=== PATIENT | female | born 1955 | race Caucasian/White ===

== ENCOUNTER 2016-08-12 16:03 | Inpatient (IN) | payer MEDICARE, MEDICAID ==
[~2016-08-12] VITALS: Ht 160 cm; Wt 89.7 kg
[2016-08-12 18:00] VITALS: BP 187/98
[2016-08-12] MEDS ORDERED: BISACODYL 5 MG TAB PO PRN (18:15)
[2016-08-12] MEDS ORDERED: ONDANSETRON 4MG/2ML VIAL (J2405) IV PRN (18:15)
[2016-08-12] MEDS ORDERED: ACETAMINOPHEN TAB 650MG DOSE (2X325MG) PO PRN (18:15)
[2016-08-12 18:59] LABS: BASO % 0.1 % (0.0-1.0); EOS # 0.1 K/mm3 (0.0-0.50); EOS % 0.4 % (0.0-3.0); LARGE UNSTAINED CELL # 0.1 K/mm3 (0.0-0.4); LARGE UNSTAINED CELL % 0.5 % (0.0-4.0); LYMPH # 0.7 K/mm3 (1.5-4.5); LYMPH % 4.4 % (24.0-44.0); MEAN CORPUSCULAR HEMOGLOBIN 30.2 pg (27.0-33.0); MEAN CORPUSCULAR HGB CONC 33.3 g/dl (32.0-36.5); MEAN CORPUSCULAR VOLUME 90.7 fl (80.0-96.0); MONO # 0.7 K/mm3 (0.0-0.8); MONO % 4.4 % (0.0-5.0); NEUTROPHILS # 13.5 K/mm3 (1.8-7.7); NEUTROPHILS % 90.2 % (36.0-66.0); PLATELET COUNT, AUTOMATED 306 k/mm3 (150-450); RED CELL DISTRIBUTION WIDTH 15.8 % (11.5-14.5)
[2016-08-12] MEDS ORDERED: cloNIDine 0.1 MG TAB PO ONE (19:00)
[2016-08-12] MEDS ORDERED: amLODIPine 10 MG TAB PO ONE (19:00)
[2016-08-12 19:04] LABS: INR 0.96
--- NOTE | 2016-08-12 19:12 | REP ---
PORTABLE CHEST, ONE VIEW: HISTORY: Shortness of breath. COMPARISON: 08/12/2016 A large mass is present in the right hilum. Increased density is present in the right lower lobe consistent with atelectasis or infiltrate. A right pleural effusion is present that is increased compared to the previous study. The left lung is clear. IMPRESSION: 1. Right hilar mass, unchanged compared to the previous study. 2. Right lower lobe atelectasis or infiltrate. 3. Right pleural effusion, increased compared to the previous study. Signed by Suraj Cobb MD 08/12/2016 07:14 P
[2016-08-12 19:38] LABS: ALBUMIN 3.2 GM/DL (3.2-5.2); ALBUMIN/GLOBULIN RATIO 1.07 (1.00-1.93); ALKALINE PHOSPHATASE 108 U/L (45-117); ALT/SGPT 74 U/L (12-78); ANION GAP 10 MEQ/L (8-16); AST/SGOT 27 U/L (15-37); BILIRUBIN,TOTAL 0.5 MG/DL (0.2-1.0); BLOOD UREA NITROGEN 19 MG/DL (7-18); CALCIUM LEVEL 8.3 MG/DL (8.8-10.2); CARBON DIOXIDE LEVEL 35 MEQ/L (21-32); CHLORIDE LEVEL 94 MEQ/L (98-107); CREATININE FOR GFR 0.76 MG/DL (0.55-1.02); GLOMERULAR FILTRATION RATE > 60.0 (>45); GLUCOSE, FASTING 99 MG/DL (80-110); MAGNESIUM LEVEL 1.3 MG/DL (1.8-2.4); POTASSIUM SERUM 2.5 MEQ/L (3.5-5.1); SODIUM LEVEL 139 MEQ/L (136-145); TOTAL PROTEIN 6.2 GM/DL (6.4-8.2)
[2016-08-12] MEDS ORDERED: POTASSIUM CHLORIDE 10 MEQ SR TABLET PO ONE ×3 (19:45→20:45)
[2016-08-12] MEDS ORDERED: FUROSEMIDE 40 MG/4 ML VIAL (J1940) IV ONE (20:00)
[2016-08-12] MEDS ORDERED: IPRATROPIUM 0.5MG/ALBUTEROL 2.5MG INH SOL UD 3ML (DUONEB)(J7620) NEB PRN (20:00)
[2016-08-12] MEDS ORDERED: GLUCAGON FOR INJ 1 MG VIAL (J1610) SC PRN (20:15)
[2016-08-12] MEDS ORDERED: NICOTINE POLACRILEX 2 MG GUM PO PRN (20:15)
[2016-08-12] MEDS ORDERED: GLUCOSE 4 GM CHEW TABLET PO PRN (20:15)
[2016-08-12] MEDS ORDERED: DEXTROSE 50% 50 ML SYRINGE IV PRN (20:15)
[2016-08-12] MEDS: MAG SULF 1GM/100ML (MAG RUN) 1 GM in APPROPRIATE DILUENT 1 EA IV SCH ×3 (20:18→23:05)
[2016-08-12] MEDS: IPRATROPIUM 0.5MG/ALBUTEROL 2.5MG INH SOL UD 3ML (DUONEB)(J7620) NEB SCH (20:43)
[2016-08-12 20:53] LABS: CHOLESTEROL LEVEL 256 MG/DL (<200); TRIGLYCERIDES LEVEL 347 MG/DL (<150)
[2016-08-12] MEDS: HumaLOG INSULIN (NovoLOG) PER UNIT SC SCH (21:00)
[2016-08-12] MEDS: HEPARIN SOD (PORCINE) 5000 UNITS/ML VIAL SC SCH (21:41)
[2016-08-12] MEDS: NICOTINE 7 MG/24 HR TRANSDERMAL TD SCH (21:41)
[2016-08-12] MEDS: METOPROLOL TARTRATE 100 MG TAB PO SCH (21:42)
[2016-08-12] MEDS: ROSUVASTATIN 10 MG TAB (CRESTOR) PO SCH (21:42)
[2016-08-12] MEDS: **hydrALAZINE HCL** 25 MG TAB PO SCH (21:43)
[2016-08-12] MEDS ORDERED: CRES40TA PO (22:23)
[2016-08-12] MEDS ORDERED: GLIP5TAB8 PO (22:23)
[2016-08-12] MEDS ORDERED: NEXI40CA PO (22:23)
[2016-08-12] MEDS ORDERED: AMLO10TA2 PO (22:23)
[2016-08-12] MEDS ORDERED: HYDR-4267 PO (22:23)
[2016-08-12] MEDS ORDERED: METO200T15 PO (22:24)
[2016-08-12] MEDS ORDERED: HYDR-4266 PO (22:24)
[2016-08-12 22:25] VITALS: BP 129/69
[2016-08-12] MEDS ORDERED: METF1000 PO (22:27)
[2016-08-12] MEDS ORDERED: VALS1TAB48 PO (22:27)
[2016-08-12] MEDS ORDERED: METF500T PO (22:27)
[2016-08-12] MEDS ORDERED: ALBU17IN INH (22:27)
[2016-08-12] MEDS ORDERED: HYDR25TAB PO (22:28)
[2016-08-12] MEDS ORDERED: NYST10CR EXT (22:28)
--- NOTE | 2016-08-12 22:28 | ECGEPIP ---
Stationary ECG Study [facility] Test Date: 2016-08-12 Pat Name: SERGIO ANDINO Department: Room: [place] [address] Gender: F [employer]: SANDI : 1955 Requested By: JOAQUIM Grimes Order Number: [id number] Reading MD: Luis Enrique Bustamante Measurements Intervals [place] Rate: 81 P: 59 HI: 129 QRS: 18 QRSD: 81 T: 0 QT: 203 QTc: 236 Interpretive Statements SINUS RHYTHM WITH One VENTRICULAR PREMATURE COMPLEX poor R-wave progression Nonspecific ST-T abnormalities. No prior ECG available for comparison at the time of interpretation. Electronically Signed On 08-12-2016 22:28:29 EDT by Luis Enrique Bustamante
[2016-08-12] MEDS ORDERED: VITA50003 PO (22:30)
[2016-08-12] MEDS ORDERED: FLUT1SPR2 (22:30)
[2016-08-12] MEDS ORDERED: VITA200016 PO (22:30)
[2016-08-12] MEDS ORDERED: BREO1INH INH (22:30)
[2016-08-12 22:40] VITALS: O2SAT 87
--- NOTE | 2016-08-12 22:47 | HPE ---
DATE OF ADMISSION: 08/12/2016 PRIMARY CARE PHYSICIAN: None. INPATIENT HOSPITALIST ATTENDING: Dr. Lupillo Saldaña CHIEF COMPLAINT: Shortness of breath for 2 weeks. HISTORY OF PRESENTING ILLNESS: 61-year-old female with history of 50-pack year history of smoking, actively smokes a pack a day, hypertension, type 2 diabetes, obesity, hypercholesterolemia, bilateral cataract surgery, no diagnosis of chronic obstructive pulmonary disease (COPD), questionable congestive heart failure, presents to [facility] with 2 week history of increasing shortness of breath, initially with exertion, currently at rest. According to the granddaughter, who provides most of the history, patient has not been taking her hydrochlorothiazide for the past 2 days and has increasing lower extremity edema and shortness of breath. Usual weight is 219 pounds. She denies any chest pain, pressure or tightness, cough, fever or chills, nausea, vomiting, changes in appetite, changes in vision, and usually walks across the street and back to the home without much difficulty until 2 weeks ago when she had increasing shortness of breath. She was seen by the emergency room physician at [facility] and was found to be 89% on room air, 94% on 2 liters nasal cannula, blood pressure was slightly elevated at 187/90. EKG showed sinus rhythm with premature ventricular contractions (PVCs), ventricular rate of 84. Potassium was low at 2.5 and magnesium was 1.3. Patient was supplemented with potassium and IV magnesium. Chest xray to evaluate shortness of breath showed a right hilar mass and right lower lobe atelectasis, infiltrate, and increased right-sided pleural effusion. CT of the chest shows a perihilar right upper lobe mass measuring 11.6 x 9.7 x 9.4 cm, right upper lobe and hilar mass invading the mediastinum and abutting the ascending aorta with 3.2 cm node in the right hilum and 2.5 cm node in the subcarinal region, moderate right-sided pleural effusion layering posteriorly from the base of the apex and loculated effusion anterolaterally in the mid and upper lung zone. Left lung is clear. Left adrenal has a 4.3 x 3.1 x 2.5 cm mass. Liver portion visible is clear. No focal bone lesion. Patient was transferred to [facility] for further evaluation of the right upper lobe and hilar mass for biopsy and specialty referral. PAST MEDICAL HISTORY: 1. Diabetes. 2. Hypertension. 3. Hypercholesterolemia. 4. Obesity. 5. Bilateral cataract surgery. 6. section times four. ALLERGIES: To CLINDAMYCIN, CYCLOBENZAPRINE, ERYTHROMYCIN, MELOXICAM, and SERTRALINE. HOME MEDICATIONS: - glipizide 5 mg daily - metoprolol tartrate 200 daily - hydralazine 25 daily - Norvasc 10 daily - hydrochlorothiazide 25 daily - Crestor 20 nightly - valsartan 320 daily - Prilosec 40 daily - metformin 500 mg in the afternoon, 1000 mg twice a day SOCIAL HISTORY: Patient is a heavy smoker, a pack a day since the age of 10, still smoking. Patient's healthcare proxy is the granddaughter, Essie Salcedo , . Patient states that she is DO NOT RESUSCITATE/DO NOT INTUBATE. Family has healthcare proxy form. Previous history of alcohol abuse, quit 8 years ago. No recreational drug use. FAMILY HISTORY: Mother with ovarian cancer. Sister with pancreatic cancer. Another sister with breast cancer. Father due to gonorrhea. PHYSICAL EXAMINATION: Generally, patient is awake, alert, oriented to person and place and time. She is very hard of hearing, disheveled appearing, appears older than her stated age. Her pupils are equal, round, reactive to light and accommodation. She has edema around the neck and lower face. Pharynx is normal. Dry mucous membranes. No jugular venous distention. Neck is supple, no thyromegaly. HEART: S1, S2, sinus rhythm. No murmurs, rubs, or gallops. LUNGS: Diminished breath sounds on the right with coarse rhonchi, left is clear. No use of accessory muscles. Positive prolonged expiration. Faint wheezing. ABDOMEN: Obese, soft, nontender, nondistended. Positive bowel sounds times four quadrants. No rebound, guarding, or hepatosplenomegaly. EXTREMITIES: 3+ pitting edema to the bilateral ankles to the sacrum. EKG sinus rhythm, ventricular rate of 84, [place] interval of 140, QRS of 78, QTc of 456. Occasional PVCs. Poor R-wave progression. Normal QRS. Nonspecific ST-T wave changes. Lateral T-wave depressions. Chest xray shows perihilar right upper lobe mass-like opacity suspicious for neoplasm with right pleural effusion, mild to moderate sized, with some compressive atelectasis at the right base, underlying fibrosis, and COPD noted. Left lung was without effusion, mass, or definite infiltrate. No cardiomegaly or edema. CT chest at [facility] shows 11.6 x 9.7 x 9.4 cm right upper lobe and hilar mass invading the mediastinum and abutting the ascending aorta. 3.2 cm node in the right hilum. 2.5 cm node in subcarinal region. Moderate right pleural effusion layering posteriorly from base to apex. Loculated effusion anterolaterally in the mid and upper lung zone. Left lung is clear. Left adrenal 4.3 x 3.1 x 2.5 cm mass. Liver portion visible is clear. No focal bone lesions. LABORATORY DATA: White count 15, hemoglobin 13, hematocrit 41, platelet count 306, 90% neutrophils. Sodium 139, potassium 2.5, chloride 94, bicarbonate 35, BUN 19, creatinine 0.76, glucose 99, magnesium 1.3, calcium 8.3, total bilirubin 0.5, AST 27, ALT 74, alkaline phosphatase 108, total CK 52, MB fraction 4.3, MB relative index 8.26, troponin 0.03, C-reactive protein 0.72, BNP is pending, total protein 6.2, albumin 3.2, TSH 1.27. ASSESSMENT AND PLAN: This is a 61-year-old female with history of active smoking, 50-pack year history of smoking, no diagnosis of chronic obstructive pulmonary disease (COPD), diabetes, hypertension, hyperlipidemia, obesity, presents with 1 week history of increasing shortness of breath, lower extremity edema, and missed doses of hydrochlorothiazide, brought in by family to [facility] Emergency Room. In the emergency room, she was found to have a right upper lobe mass on chest xray, 3+ pitting edema in her lower extremities, and severe electrolyte abnormalities which were supplemented. CT chest showed an 11.6 x 9.7 x 9.4 cm right upper lobe and hilar mass. Patient was transferred from [facility] Emergency Room to [facility] for further management of patient's right upper lobe and hilar mass, most likely secondary to malignancy. Patient will be admitted as an inpatient for 2 midnights and will be assigned to Dr. Lupillo Saldaña for the following issues: 1. Right upper lobe and hilar mass measuring 11.6 x 9.7 x 9.4 cm invading the mediastinum and abutting the ascending aorta with corresponding lymph nodes measuring 3.2 cm in the right hilum and 2.5 cm in the subcarinal region with moderate right-sided pleural effusion and left adrenal mass, most likely metastatic lesion. Patient is agreeable to undergoing biopsy. Therefore, patient will be placed under telemetry due to premature ventricular contractions (PVCs) and severe electrolyte abnormalities. Dr. Hal Walsh, thoracic surgeon, will be consulted in the morning as there is no emergent need this evening. Patient is saturating well at 94% on 2 liters nasal cannula, 89% on room air, no significant respiratory distress. Patient is agreeable to proceeding with biopsy as needed and healthcare proxy is aware of the current management plan. 2. Electrolyte abnormalities with low potassium and low magnesium, most likely secondary to hydrochlorothiazide. Patient will be given supplements. Will repeat potassium and magnesium levels. 3. Lower extremity edema with moderate right-sided pleural effusion. No jugular venous distention is noted. Will check a two dimensional echocardiogram. Trial of Lasix, strict intake and output, daily weights, and fluid restriction for now. Repeat cardiac markers every 6 hours and repeat 12-lead EKG in the morning. Monitor on telemetry for premature ventricular contractions (PVCs) and supplement potassium and magnesium until optimized. 4. Abnormal cardiac markers. At this time will cycle cardiac markers. Repeat 12-lead EKG. Hold off on anticoagulation with aspirin as the patient is planned for biopsy and thoracentesis. 5. Hypertension, uncontrolled. Continue on home medication, Norvasc. Patient has been given one time dose of clonidine and Norvasc for better blood pressure control. She may be resumed on her home dose of valsartan, amlodipine, and metoprolol. 6. Active smoking. Over a 50-pack year history of smoking. Nicotine patch. Tobacco cessation counseling and nicotine gum if needed. 7. Type 2 diabetes. Consistent carbohydrate diet for now. Insulin sliding scale. Hold off on metformin due to recent contrast study to prevent contrast nephropathy. Monitor patient's creatinine and urine output. May need to hold patient's valsartan if she develops acute kidney injury. 8. Hyperlipidemia. Continue on Crestor. Check fasting lipid profile in the morning. 9. Right-sided pleural effusion, most likely malignant. Will check an echocardiogram to rule out congestive heart failure. Check pleural fluid for cytology. No empiric antibiotics as the patient denies any cough, fever, or chills. Check sputum culture if patient does develop a productive cough. 10. Obesity. Rule out sleep apnea. Check nocturnal oximetry. 11. Abnormal EKG with premature ventricular contractions (PVCs) secondary to electrolyte abnormalities. Cycle cardiac markers due to nonspecific ST-T changes. MTDD
[2016-08-12 23:59] VITALS: BP 125/65
[2016-08-13] VITALS (7 sets, daily range): BP systolic 113–158; BP diastolic 65–85
[2016-08-13] MEDS ORDERED: FUROSEMIDE 40 MG/4 ML VIAL (J1940) IV ONE
[2016-08-13 01:36] LABS: MAGNESIUM LEVEL 2.2 MG/DL (1.8-2.4)
[2016-08-13] MEDS: IPRATROPIUM 0.5MG/ALBUTEROL 2.5MG INH SOL UD 3ML (DUONEB)(J7620) NEB SCH ×4 (02:32→22:04)
[2016-08-13] MEDS: HEPARIN SOD (PORCINE) 5000 UNITS/ML VIAL SC SCH ×3 (06:00→22:09)
[2016-08-13 06:02] LABS: BASO % 0.2 % (0.0-1.0); EOS % 0.3 % (0.0-3.0); LARGE UNSTAINED CELL # 0.1 K/mm3 (0.0-0.4); LARGE UNSTAINED CELL % 0.5 % (0.0-4.0); LYMPH # 0.8 K/mm3 (1.5-4.5); MEAN CORPUSCULAR HEMOGLOBIN 29.6 pg (27.0-33.0); MEAN CORPUSCULAR HGB CONC 32.8 g/dl (32.0-36.5); MONO # 0.6 K/mm3 (0.0-0.8); MONO % 4.6 % (0.0-5.0); NEUTROPHILS # 12.6 K/mm3 (1.8-7.7); NEUTROPHILS % 89.4 % (36.0-66.0); PLATELET COUNT, AUTOMATED 308 k/mm3 (150-450); RED CELL DISTRIBUTION WIDTH 15.9 % (11.5-14.5)
[2016-08-13 06:21] LABS: BLOOD UREA NITROGEN 21 MG/DL (7-18); CALCIUM LEVEL 8.2 MG/DL (8.8-10.2); CARBON DIOXIDE LEVEL 35 MEQ/L (21-32); CHLORIDE LEVEL 94 MEQ/L (98-107); CREATININE FOR GFR 0.85 MG/DL (0.55-1.02); GLOMERULAR FILTRATION RATE > 60.0 (>45); GLUCOSE, FASTING 144 MG/DL (80-110)
[2016-08-13 06:27] LABS: ANION GAP 9 MEQ/L (8-16); SODIUM LEVEL 138 MEQ/L (136-145)
[2016-08-13 06:36] LABS: POTASSIUM SERUM 2.8 MEQ/L (3.5-5.1)
[2016-08-13] MEDS: POTASSIUM CHLORIDE 10 MEQ SR TABLET PO SCH ×2 (06:50→22:06)
[2016-08-13] MEDS: HumaLOG INSULIN (NovoLOG) PER UNIT SC SCH ×4 (07:30→21:00)
[2016-08-13] MEDS: TIOTROPIUM INHALER/CAPSULE (SPIRIVA) INH SCH (08:14)
[2016-08-13] MEDS ORDERED: POTASSIUM CHLORIDE 10 MEQ SR TABLET PO ONE ×2 (08:45→12:45)
[2016-08-13] MEDS: VALSARTAN 80 MG TAB (DIOVAN) PO SCH (09:07)
[2016-08-13] MEDS: **hydrALAZINE HCL** 25 MG TAB PO SCH ×2 (09:07→21:00)
[2016-08-13] MEDS: METOPROLOL TARTRATE 100 MG TAB PO SCH ×2 (09:08→22:08)
[2016-08-13] MEDS: OMEPRAZOLE 20 MG CAP PO SCH (09:08)
[2016-08-13] MEDS: amLODIPine 10 MG TAB PO SCH (09:08)
[2016-08-13] MEDS: PIPERACILLIN/TAZOBACTAM SOD 3.375 GM in D5W MINI-BAG PLUS 50 ML IV SCH ×3 (09:10→22:10)
[2016-08-13] MEDS: NICOTINE 7 MG/24 HR TRANSDERMAL TD SCH (09:10)
[2016-08-13] MEDS: FUROSEMIDE 40 MG/4 ML VIAL (J1940) IV SCH ×4 (09:11→21:40)
[2016-08-13 12:06] LABS: ANION GAP 10 MEQ/L (8-16); BLOOD UREA NITROGEN 21 MG/DL (7-18); CALCIUM LEVEL 8.5 MG/DL (8.8-10.2); CARBON DIOXIDE LEVEL 36 MEQ/L (21-32); CHLORIDE LEVEL 95 MEQ/L (98-107); CREATININE FOR GFR 0.83 MG/DL (0.55-1.02); GLOMERULAR FILTRATION RATE > 60.0 (>45); GLUCOSE, FASTING 157 MG/DL (80-110); POTASSIUM SERUM 3.1 MEQ/L (3.5-5.1); SODIUM LEVEL 141 MEQ/L (136-145)
--- NOTE | 2016-08-13 15:18 | ECGEPIP ---
Stationary ECG Study [facility] Test Date: 2016-08-13 Pat Name: SERGIO ANDINO Department: Room: [place] [address] Gender: F [employer]: JAME : 1955 Requested By: JOAQUIM Grimes Order Number: [id number] Reading MD: Luis Enrique Busatmante Measurements Intervals [place] Rate: 69 P: 17 [place]: 151 QRS: 7 QRSD: 82 T: 128 QT: 396 QTc: 426 Interpretive Statements SINUS RHYTHM, Poor R-wave progression, POSSIBLE ANTERIOR MYOCARDIAL INFARCTION, OF INDETERMINATE AGE No PVCs compared with 08/12/2016. Electronically Signed On 08-13-2016 15:17:44 EDT by Luis Enrique Bustamante
--- NOTE | 2016-08-13 15:20 | IPNPDOC ---
Text Note Date of Service The patient was seen on 08/13/16. NOTE Subjective: States she has a mild improvement of her stress of breath. No chest pain/vomiting. Objective: Vitals: (see below) General: No acute distress, laying comfortably in bed. HEENT: Moist mucous membranes. Neck: No JVD or lymphadenopathy Cardiac: RRR, No murmurs Pulm: Diminished breath sounds bilateral lower lobes and right greater than left. Crackles right greater than left. B/l. No wheezing, rhonchi Abd: NT/ND + BS Ext: 1-2+ pitting edema bilateral lower extremities. No cyanosis Labs (see below) Images: Chest x-ray 08/12/16 IMPRESSION: 1. Right hilar mass, unchanged compared to the previous study. 2. Right lower lobe atelectasis or infiltrate. 3. Right pleural effusion, increased compared to the previous study. Assessment/Plan 1. Large right hilar mass- biopsy today. 11.6 x 9.7 x 9.4 cm invading the mediastinum. Likely malignant. We will follow-up with CT abdomen/pelvis to rule out metastases. Patient also has a fairly large right pleural effusion that appears to be loculated, for which Zosyn was started. Discussed with Dr. Walsh who recommends thoracentesis, ordered for IR. Dr. Walsh will also evaluated patient. We'll obtain oncology consultation after biopsy is back. 2. Decompensated heart failure- on Lasix 40 mg every 4 hours. Echocardiogram pending. Nonspecific ST changes on EKG. Cardiac enzymes negative. Aspirin held as the patient is going for a biopsy and thoracentesis. 3. Hypertension- controlled continue current meds 4. Tobacco abuse- counseled on cessation. Nicotine patch 5. Diabetes mellitus- metformin held. Continue insulin. 6. Hyperlipidemia- continue statin 7. Obesity DVT prophy: Heparin subcutaneous VS,Fishbone, I+O VS, Fishbone, I+O Laboratory Tests 08/12/16 18:47 Calcium Level 8.3 L, Aspartate Amino Transf (AST/SGOT) 27, Alanine Aminotransferase (ALT/SGPT) 74, Total Creatine Kinase 52, Alkaline Phosphatase 108, Total Bilirubin 0.5, Triglycerides Level 347 H, Cholesterol Level 256 H, HDL Cholesterol 42, LDL Cholesterol 144.6 H, Total Protein 6.2 L, Albumin 3.2, Red Blood Count 4.60, Mean Corpuscular Volume 90.7, Mean Corpuscular Hemoglobin 30.2, Mean Corpuscular Hemoglobin Concent 33.3, Red Cell Distribution Width 15.8 H, Neutrophils (%) (Auto) 90.2 H, Lymphocytes (%) (Auto) 4.4 L, Monocytes ( %) (Auto) 4.4, Eosinophils (%) (Auto) 0.4, Basophils (%) (Auto) 0.1, Neutrophils # (Auto) 13.5 H, Lymphocytes # (Auto) 0.7 L, Monocytes # (Auto) 0.7 , Eosinophils # (Auto) 0.1, Basophils # (Auto) 0.0 08/13/16 01:05 Total Creatine Kinase 46 08/13/16 05:41 Calcium Level 8.2 L, Red Blood Count 4.46, Mean Corpuscular Volume 90.0, Mean Corpuscular Hemoglobin 29.6, Mean Corpuscular Hemoglobin Concent 32.8, Red Cell Distribution Width 15.9 H, Neutrophils (%) (Auto) 89.4 H, Lymphocytes (%) (Auto ) 5.0 L, Monocytes (%) (Auto) 4.6, Eosinophils (%) (Auto) 0.3, Basophils (%) ( Auto) 0.2, Neutrophils # (Auto) 12.6 H, Lymphocytes # (Auto) 0.8 L, Monocytes # (Auto) 0.6, Eosinophils # (Auto) 0.0, Basophils # (Auto) 0.0 08/13/16 11:29 Calcium Level 8.5 L Vital Signs Date Time Temp Pulse Resp B/P Pulse Ox O2 Delivery O2 Flow Rate FiO2 08/13/16 12:00 97.8 65 20 115/65 91 High Flow Cannula 8.0 I&O- Last 24 Hours up to 6 AM 08/13/16 06:00 Intake Total 300 ml Output Total 950 ml Balance -650 ml HEATHER RODRIGES MD Aug 13, 2016 15:20
[2016-08-13 15:26] LABS: BF DIFF IF INDICATED? YES (NO); RBC PLEURAL FLUID 120 (<10mm3 cells/uL); TNC PLEURAL FLUID 1466 cells/uL (0-20)
[2016-08-13 15:39] LABS: LDH, BODY FLUID 789 U/L (NOT ESTABLISHED); TOTAL PROTEIN, BODY FLUID 3.5 G/DL (NOT ESTABLISHED)
--- NOTE | 2016-08-13 16:49 | REP ---
CHEST X-RAY PA AND LATERAL: 08/13/2016. Clinical history: post thoracentesis chest. Comparison: portable chest 08/12/2016, CT chest 08/12/2016. Large mass at the right hilum upper lung zone. There is less pleural fluid on the right side. I do not see evidence of any definite pneumothorax or pneumomediastinum. The right base shows some subsegmental and linear atelectatic change. Left lung with some basilar fibrotic change but remains clear. There are no other interval changes or findings. Impression: 1. Large right hilar and upper lobe mass with an decrease in the right pleural effusion after thoracentesis and no evidence of pneumothorax. There is some basilar linear atelectatic change on the right and minor basilar fibrotic changes on the left. Signed by Chu Aguirre MD 08/13/2016 04:41 P
[2016-08-13 17:51] LABS: CC BF DIFF EXAM CYTOCENTRIFUGE
--- NOTE | 2016-08-13 17:55 | REP ---
Right thoracentesis: Ultrasound guidance. Diagnostic and therapeutic. History: Presumed malignant right pleural effusion. Large right chest mass. Procedure: The patient, along with her daughter and son were interviewed and informed consent was obtained. The patient was scanned sonographically through the posterior chest on the right side with the patient in the sitting position. This confirms the presence of a moderate-sized right pleural effusion. Optimal rib interspace was chosen on sonographic guidance and the overlying skin was marked. After the patient safety time-out was articulated and agreed to this area was prepped and draped in the usual fashion. 6 ml of 1% lidocaine was injected at the site for local anesthetic. Utilizing sonographic localization and aseptic precautions, an # 8-Syriac [place] catheter was passed into the right pleural space without technical difficulty. 990 ml of bloody pleural fluid was withdrawn and submitted to the lab as requested. The patient tolerated the procedure well. Postprocedure chest x-ray will be obtained and dictated separately. Impression: Ultrasound guided right thoracentesis procedure. Signed by Darius Chapa MD 08/14/2016 08:04 A
[2016-08-13 19:03] LABS: ANION GAP 8 MEQ/L (8-16); BLOOD UREA NITROGEN 28 MG/DL (7-18); CALCIUM LEVEL 8.1 MG/DL (8.8-10.2); CARBON DIOXIDE LEVEL 34 MEQ/L (21-32); CHLORIDE LEVEL 97 MEQ/L (98-107); CREATININE FOR GFR 0.99 MG/DL (0.55-1.02); GLOMERULAR FILTRATION RATE > 60.0 (>45); GLUCOSE, FASTING 163 MG/DL (80-110); POTASSIUM SERUM 3.2 MEQ/L (3.5-5.1); SODIUM LEVEL 139 MEQ/L (136-145)
[2016-08-13] MEDS: ROSUVASTATIN 10 MG TAB (CRESTOR) PO SCH (22:09)
[2016-08-14 00:35] LABS: CALCIUM LEVEL 7.9 MG/DL (8.8-10.2); CREATININE FOR GFR 1.12 MG/DL (0.55-1.02); GLOMERULAR FILTRATION RATE 52.3 (>45); POTASSIUM SERUM 3.5 MEQ/L (3.5-5.1)
[2016-08-14] MEDS: FUROSEMIDE 40 MG/4 ML VIAL (J1940) IV SCH ×6 (01:07→19:45)
[2016-08-14] MEDS: IPRATROPIUM 0.5MG/ALBUTEROL 2.5MG INH SOL UD 3ML (DUONEB)(J7620) NEB SCH ×4 (01:40→20:12)
[2016-08-14] MEDS ORDERED: POTASSIUM CHLORIDE 10 MEQ SR TABLET PO ONE ×2 (02:15→09:00)
[2016-08-14] MEDS: PIPERACILLIN/TAZOBACTAM SOD 3.375 GM in D5W MINI-BAG PLUS 50 ML IV SCH ×4 (02:28→21:44)
[2016-08-14 05:03] VITALS: BP 134/64
[2016-08-14] MEDS: HEPARIN SOD (PORCINE) 5000 UNITS/ML VIAL SC SCH ×3 (05:14→21:43)
[2016-08-14 05:53] LABS: BASO % 0.1 % (0.0-1.0); EOS # 0.1 K/mm3 (0.0-0.50); EOS % 0.9 % (0.0-3.0); LARGE UNSTAINED CELL # 0.1 K/mm3 (0.0-0.4); LARGE UNSTAINED CELL % 0.6 % (0.0-4.0); LYMPH # 0.6 K/mm3 (1.5-4.5); LYMPH % 4.7 % (24.0-44.0); MEAN CORPUSCULAR HEMOGLOBIN 29.7 pg (27.0-33.0); MEAN CORPUSCULAR HGB CONC 32.2 g/dl (32.0-36.5); MEAN CORPUSCULAR VOLUME 92.3 fl (80.0-96.0); MONO # 0.5 K/mm3 (0.0-0.8); NEUTROPHILS # 10.8 K/mm3 (1.8-7.7); NEUTROPHILS % 89.7 % (36.0-66.0); PLATELET COUNT, AUTOMATED 273 k/mm3 (150-450); RED CELL DISTRIBUTION WIDTH 15.7 % (11.5-14.5)
[2016-08-14 06:20] LABS: ANION GAP 7 MEQ/L (8-16); BLOOD UREA NITROGEN 24 MG/DL (7-18); CARBON DIOXIDE LEVEL 34 MEQ/L (21-32); CHLORIDE LEVEL 100 MEQ/L (98-107); CREATININE FOR GFR 0.98 MG/DL (0.55-1.02); GLOMERULAR FILTRATION RATE > 60.0 (>45); GLUCOSE, FASTING 166 MG/DL (80-110); MAGNESIUM LEVEL 1.6 MG/DL (1.8-2.4); POTASSIUM SERUM 3.4 MEQ/L (3.5-5.1); SODIUM LEVEL 141 MEQ/L (136-145)
[2016-08-14 07:27] VITALS: BP 147/86
[2016-08-14] MEDS: TIOTROPIUM INHALER/CAPSULE (SPIRIVA) INH SCH (07:37)
[2016-08-14] MEDS: HumaLOG INSULIN (NovoLOG) PER UNIT SC SCH ×4 (08:28→21:44)
[2016-08-14] MEDS: POTASSIUM CHLORIDE 10 MEQ SR TABLET PO SCH ×2 (08:29→21:43)
[2016-08-14] MEDS: NICOTINE 7 MG/24 HR TRANSDERMAL TD SCH (08:29)
[2016-08-14] MEDS: METOPROLOL TARTRATE 100 MG TAB PO SCH ×2 (08:30→21:43)
[2016-08-14] MEDS: VALSARTAN 80 MG TAB (DIOVAN) PO SCH (08:30)
[2016-08-14] MEDS: amLODIPine 10 MG TAB PO SCH (08:30)
[2016-08-14] MEDS: OMEPRAZOLE 20 MG CAP PO SCH (08:30)
[2016-08-14] MEDS: **hydrALAZINE HCL** 25 MG TAB PO SCH ×2 (08:31→20:50)
[2016-08-14] MEDS ORDERED: MAG SULF 1GM/100ML (MAG RUN) 1 GM in APPROPRIATE DILUENT 1 EA IV ONE (09:00)
[2016-08-14] MEDS ORDERED: SLF 3 ML SYR IV PRN (11:15)
[2016-08-14 12:00] VITALS: BP 118/69
[2016-08-14] MEDS: SLF 3 ML SYR IV SCH ×2 (12:00→21:44)
--- NOTE | 2016-08-14 12:11 | IPNPDOC ---
Text Note Date of Service The patient was seen on 08/14/16. NOTE Subjective: States she has a mild improvement of her stress of breath. No chest pain/palpitations. Objective: Vitals: (see below) General: No acute distress, laying comfortably in bed. HEENT: Moist mucous membranes. Neck: No JVD or lymphadenopathy Cardiac: RRR, No murmurs Pulm: Diminished breath sounds bilateral lower lobes and right greater than left , improved from yesterday. Crackles right greater than left. B/l. No wheezing, rhonchi Abd: NT/ND + BS Ext: 1-2+ pitting edema bilateral lower extremities. No cyanosis Labs (see below) Images: Chest x-ray 08/12/16 IMPRESSION: 1. Right hilar mass, unchanged compared to the previous study. 2. Right lower lobe atelectasis or infiltrate. 3. Right pleural effusion, increased compared to the previous study. Assessment/Plan 1. Large right hilar mass- biopsy today. 11.6 x 9.7 x 9.4 cm invading the mediastinum. Likely malignant. We will follow-up with CT abdomen/pelvis to rule out metastases. Patient also has a fairly large right pleural effusion that appears to be loculated, for which Zosyn was started. Discussed with Dr. Walsh who recommends thoracentesis, ordered for IR. Pt had thoracentesis on 08/13/16. Dr. Walsh will also evaluated patient. We'll obtain oncology consultation after biopsy is back. 2. Decompensated heart failure- symptoms improving. On Lasix 40 mg every 4 hours. Echocardiogram pending. Nonspecific ST changes on EKG. Cardiac enzymes negative. Aspirin held as the patient is going for a biopsy and thoracentesis. 3. Hypertension- controlled continue current meds 4. Tobacco abuse- counseled on cessation. Nicotine patch 5. Diabetes mellitus- metformin held. Continue insulin. 6. Hyperlipidemia- continue statin 7. Obesity DVT prophy: Heparin subcutaneous VS,Fishbone, I+O VS, Fishbone, I+O Laboratory Tests 08/13/16 17:58 Calcium Level 8.1 L 08/13/16 23:40 Calcium Level 7.9 L 08/14/16 05:32 Calcium Level 8.0 L, Red Blood Count 4.49, Mean Corpuscular Volume 92.3, Mean Corpuscular Hemoglobin 29.7, Mean Corpuscular Hemoglobin Concent 32.2, Red Cell Distribution Width 15.7 H, Neutrophils (%) (Auto) 89.7 H, Lymphocytes (%) (Auto ) 4.7 L, Monocytes (%) (Auto) 4.0, Eosinophils (%) (Auto) 0.9, Basophils (%) ( Auto) 0.1, Neutrophils # (Auto) 10.8 H, Lymphocytes # (Auto) 0.6 L, Monocytes # (Auto) 0.5, Eosinophils # (Auto) 0.1, Basophils # (Auto) 0.0 Vital Signs Date Time Temp Pulse Resp B/P Pulse Ox O2 Delivery O2 Flow Rate FiO2 08/14/16 08:30 147/86 08/14/16 07:27 96.4 72 20 95 High Flow Cannula 8.0 I&O- Last 24 Hours up to 6 AM 08/14/16 06:00 Intake Total 940 ml Output Total 2390 ml Balance -1450 ml HEATHER RODRIGES MD Aug 14, 2016 12:11
[2016-08-14] MEDS ORDERED: MORPHINE 2 MG/ML 1ML SYRINGE IV PRN (15:15)
[2016-08-14] MEDS ORDERED: LORazepam 2 MG/ML VIAL (J2060) IV PRN (15:15)
[2016-08-14 16:07] VITALS: BP 122/68
--- NOTE | 2016-08-14 16:56 | CR ---
DATE OF CONSULTATION: 08/14/2016 The patient is seen at the request of Dr. Saldaña of the hospitalist service for a right pleural effusion and an upper lobe lung mass. HISTORY OF THE PRESENT ILLNESS: The patient is a 61-year-old white female who is a very difficult historian and hard of hearing. Most of the history is coming from her daughter. The patient presented to the emergency room complaining of increased swelling of her extremities. Over the past 3 weeks, the family has noticed that her head has become a bit bigger and her eyes have started to bulge. Nonetheless, she came to the emergency room because she had peripheral edema. She is becoming more slowly short of breath over the last couple of weeks. There has been a cough but no sputum production. There has been no fever, chills or sweats , but she has lost between 10 and 15 pounds over the last 3 months without trying. There is no dysphagia. Her shortness of breath is such that she gets winded just walking around her house. She has been placed on oxygen in the hospital and that has alleviated much of her shortness of breath. She initially presented to the [facility]. She was found to be 89% saturated on room air but upon undertaking a CT of her chest, she was transferred here. Please see below for discussion of the CT findings. PAST MEDICAL HISTORY Diabetes. Hypertension. Hypercholesterolemia. Obesity. PAST SURGICAL HISTORY: Bilateral cataract surgery. section times four. ALLERGIES: CLINDAMYCIN, CYCLOBENZAPRINE, ERYTHROMYCIN, MELOXICAM and SERTRALINE. HOME MEDICATIONS: - glipizide 5 mg daily - metoprolol 200 mg daily - hydralazine 25 mg daily - Norvasc 10 mg daily - hydrochlorothiazide 25 mg daily - Crestor 20 mg daily - valsartan 320 mg daily - Prilosec 40 mg daily - metformin 1000 mg twice a day TRAVEL HISTORY: No travel outside of [facility]. No foreign travel. HABITS: Smokes between 1 and 1-1/2 packs a day for the last 50 years. She smokes [place] and [place]. She used to have an alcohol problem but stopped drinking 8 years ago. No illicit drugs. EXPOSURES: She has a dog and a cat at home. The dog is a long-haired Chihuahua. 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 There is no asbestos exposure. FAMILY HISTORY: Mother with ovarian cancer, a sister with pancreatic cancer , and another sister with breast cancer. of lung cancer approximately 8 years ago. REVIEW OF SYSTEMS: CONSTITUTIONAL: Without fever, chills, sweats or night sweats. Has had the above noted weight loss. EYES: Without diplopia, without prior jaundice, without transient monocular blindness. NOSE: Without epistaxis. MOUTH: Has had her teeth removed. Does not wear dentures. PULMONARY: See history of the present illness. CARDIAC: With extremity edema. No prior history of myocardial infarction. Does not complain of orthopnea, but does note that it is easier to breathe when she sits up. No intermittent claudication. GASTROINTESTINAL: Without nausea or vomiting but with diarrhea in the last few days. Bowel movements are acholic. There is no melena or hematochezia. No hematemesis and no abdominal pain. GENITOURINARY: Without dysuria, hematuria or a history of renal stones. NEUROLOGIC: Without paresthesias, paralyses or prior seizures. ENDOCRINE: With diabetes. No thyroid disease. LYMPHATICS: Without lumps and bumps in her neck, axilla or groin that she has noted. PSYCHIATRIC: Without pathological anxieties, depressions or psychoses. PHYSICAL EXAMINATION: A well-developed, well nourished white female in no acute distress but very hard of hearing. I am not sure if she understands everything I say, but her daughter is a great sales promoter and communicates well with her. VITAL SIGNS: Temperature is 98.1, heart rate is 70 and is sinus rhythm, respiratory rate of 20 without the use of accessory muscles. She is 95% saturated now on 6 liters nasal cannula. Blood pressure is 118/69. EYES: Pupils equal, round and reactive to light. Extraocular motor intact. Sclerae nonicteric. Her eyes do look to be bulging out with proptosis of both eyes, a little bit greater on the right than the left. HEAD: Normocephalic but has a blue tinge to it. NOSE: Without deformity. MOUTH: Shows her mucous membranes to be pink and moist. Lips and commissures without lesions. There is no thrush. She is edentulous. NECK: Supple. Because of her obesity, I do not appreciate jugular venous distention. There is no thyromegaly. No lymphadenopathy. LUNGS: Show some occasional rhonchi scattered throughout both lungs. There are decreased breath sounds in the right upper anterior hemithorax. Percussion notes are full to the diaphragm as far as I can tell through her obesity. ABDOMEN: Soft, nontender. Bowel sounds are positive. I cannot feel her liver through her obesity. There is no costovertebral angle tenderness. Bowel sounds are positive. EXTREMITIES: Show 2+ ankle edema and maybe trace pretibial edema. There is no calf tenderness. No differential swelling of the upper extremities. I do not detect swelling of her fingers. SKIN: Warm, dry and perfused without mottling. As noted above, her head and upper extremities have a definite bluish tinge to them. NEUROLOGIC: Shows II-XII intact along with gross motor and gross sensation intact. Gait is not tested. PSYCHIATRIC: Shows her to be awake and alert, oriented times three. I think that she does have some intellectual slowing but that may be secondary to her deafness. She certainly responds well and communicates well with her daughter. Her white count today is 12.0 down from 15.0 on admission. Hemoglobin and hematocrit are 13.3 and 41.5, respectively, with a platelet count of 273 and stable. Differential shows 89% neutrophils, 4% lymphocytes and 4% monocytes. There are no immature forms. No toxic granulations. Her chemistries show a potassium of 3.4 with the remainder of her electrolytes normal, except for a marginally high total CO2 of 34. BUN and creatinine are 24 and 0.98 with a glucose of 166 and a calcium of 8.0. Magnesium is 1.6. Her PT/ INR are 12.9 and 0.96 respectively with a PT-T of 22 seconds. There are no blood gases on her today. Her chest CT done at [facility] shows a very large right upper lobe lung mass. This lung mass measures 10 cm and occupies the entire right upper hemithorax. It is impinging on the superior vena cava with only a crescent of the superior vena cava left. It is invasive into the mediastinum. There is a large subcarinal node. There is additionally a pleural effusion on the right, which extends anteriorly. There is compression of the right lower lobe. The bronchus intermedius is narrowed, and there is consolidation of the middle lobe. Her left side shows multiple emphysematous changes. Adrenals show a mass in the left adrenal and in the right adrenal. Liver looks to be intact. Her chest x-ray done yesterday shows the large mass in the right hemithorax, and the pleural effusion on the portable film. Her pleural fluid drained yesterday shows a pH of 7.71 with a glucose of 144 and LDH of 789 with a corresponding serum LDH of 330, making this exudative. There are 65% lymphocytes, 11% neutrophils and 1% eosinophils and 23% monocytes/macrophages making this a predominantly lymphocytic effusion with a total cell count of 1466. Cytology has been reported back as adenocarcinoma. The cell block is pending. IMPRESSION: 1. 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 2. Malignant pleural effusion. 3. Superior vena cava (SVC) syndrome. 4. Diabetes. 5. Hypertension. 6. Hyperlipidemia. 7. Morbid obesity. PLAN AND DISCUSSION: Before seeing her, I discussed her case with Isa of Radiation Therapy. She certainly has SVC syndrome and would be a candidate for radiation therapy to open up the SVC. However, in the process of doing so, the entire right lung would be sacrificed, as well as part of the left lung. Neither Dr. Moss nor myself thought that she would tolerate that lung destruction. I , therefore, have had a long talk with her and her family regarding the options of either radiation with the potential suffocating complications or hospice care. While I did not put it as if it was a foregone conclusion that she would suffocate, I did indicate that it was certainly a possibility and that she would be dyspneic for whatever time she has left. They have, therefore, opted for hospice care, which is not at all unreasonable. I have called the hospitalist service, i.e. Dr. Saldaña, and they are going arrange hospice care. I am going to put a hospice consult in. DEBBIE
[2016-08-14] MEDS: ROSUVASTATIN 10 MG TAB (CRESTOR) PO SCH (21:43)
[2016-08-14 22:00] VITALS: BP 126/70
[2016-08-15] MEDS: FUROSEMIDE 40 MG/4 ML VIAL (J1940) IV SCH ×6 (00:22→20:48)
[2016-08-15] MEDS: PIPERACILLIN/TAZOBACTAM SOD 3.375 GM in D5W MINI-BAG PLUS 50 ML IV SCH ×2 (03:28→08:17)
[2016-08-15] MEDS: IPRATROPIUM 0.5MG/ALBUTEROL 2.5MG INH SOL UD 3ML (DUONEB)(J7620) NEB SCH ×3 (03:54→13:42)
[2016-08-15] MEDS: SLF 3 ML SYR IV SCH ×3 (05:32→20:50)
[2016-08-15] MEDS: HEPARIN SOD (PORCINE) 5000 UNITS/ML VIAL SC SCH (05:32)
[2016-08-15 06:00] VITALS: BP 148/72
[2016-08-15 06:04] LABS: BASO % 0.2 % (0.0-1.0); EOS # 0.1 K/mm3 (0.0-0.50); EOS % 0.6 % (0.0-3.0); LARGE UNSTAINED CELL # 0.1 K/mm3 (0.0-0.4); LARGE UNSTAINED CELL % 0.6 % (0.0-4.0); LYMPH # 0.6 K/mm3 (1.5-4.5); LYMPH % 4.2 % (24.0-44.0); MEAN CORPUSCULAR HEMOGLOBIN 30.7 pg (27.0-33.0); MEAN CORPUSCULAR HGB CONC 32.3 g/dl (32.0-36.5); MONO # 0.6 K/mm3 (0.0-0.8); MONO % 4.8 % (0.0-5.0); NEUTROPHILS # 11.5 K/mm3 (1.8-7.7); NEUTROPHILS % 89.6 % (36.0-66.0); PLATELET COUNT, AUTOMATED 290 k/mm3 (150-450); RED CELL DISTRIBUTION WIDTH 15.7 % (11.5-14.5); WHITE BLOOD COUNT 12.8 K/mm3 (4.0-10.0)
[2016-08-15 06:14] LABS: CALCIUM LEVEL 8.2 MG/DL (8.8-10.2); GLOMERULAR FILTRATION RATE 59.6 (>45); MAGNESIUM LEVEL 1.7 MG/DL (1.8-2.4); POTASSIUM SERUM 3.2 MEQ/L (3.5-5.1)
[2016-08-15] MEDS: TIOTROPIUM INHALER/CAPSULE (SPIRIVA) INH SCH (07:51)
[2016-08-15] MEDS: HumaLOG INSULIN (NovoLOG) PER UNIT SC SCH ×4 (08:17→20:49)
[2016-08-15] MEDS: NICOTINE 7 MG/24 HR TRANSDERMAL TD SCH (08:18)
[2016-08-15] MEDS: VALSARTAN 80 MG TAB (DIOVAN) PO SCH (08:18)
[2016-08-15] MEDS: OMEPRAZOLE 20 MG CAP PO SCH (08:19)
[2016-08-15] MEDS: METOPROLOL TARTRATE 100 MG TAB PO SCH ×2 (08:19→20:49)
[2016-08-15] MEDS: POTASSIUM CHLORIDE 10 MEQ SR TABLET PO SCH ×2 (08:20→20:48)
[2016-08-15] MEDS: **hydrALAZINE HCL** 25 MG TAB PO SCH ×2 (08:20→20:37)
[2016-08-15] MEDS: amLODIPine 10 MG TAB PO SCH (08:20)
--- NOTE | 2016-08-15 13:19 | IPNPDOC ---
Text Note Date of Service The patient was seen on 08/15/16. NOTE Subjective: Improvement of her stress of breath. No chest pain/palpitations. Objective: Vitals: (see below) General: No acute distress, laying comfortably in bed. HEENT: Moist mucous membranes. Neck: No JVD or lymphadenopathy Cardiac: RRR, No murmurs Pulm: Diminished breath sounds bilateral lower lobes and right greater than left , improved from yesterday. Crackles right greater than left. B/l. No wheezing, rhonchi Abd: NT/ND + BS Ext: 1-2+ pitting edema bilateral lower extremities. No cyanosis Labs (see below) Images: Chest x-ray 08/12/16 IMPRESSION: 1. Right hilar mass, unchanged compared to the previous study. 2. Right lower lobe atelectasis or infiltrate. 3. Right pleural effusion, increased compared to the previous study. Assessment/Plan 1. Large right hilar mass- biopsy today. 11.6 x 9.7 x 9.4 cm invading the mediastinum. Likely malignant. We will follow-up with CT abdomen/pelvis to rule out metastases. Patient also has a fairly large right pleural effusion that appears to be loculated, for which Zosyn was started. Discussed with Dr. Walsh who recommends thoracentesis, ordered for IR. Pt had thoracentesis on 08/13/16. Dr. Walsh evaluated patient and since the patient has started to develop SVC syndrome, radiation treatment was offered and given the long burden , the patient opted for [facility]/hospice care. 2. Decompensated heart failure- symptoms improving. On Lasix 40 mg every 4 hours. Echocardiogram pending. Nonspecific ST changes on EKG. Cardiac enzymes negative. Aspirin held as the patient is going for a biopsy and thoracentesis. 3. Hypertension- controlled continue current meds 4. Tobacco abuse- counseled on cessation. Nicotine patch 5. Diabetes mellitus- metformin held. Continue insulin. 6. Hyperlipidemia- continue statin 7. Obesity DVT prophy: Heparin subcutaneous We'll continue to diurese patients for comfort, in the hopes of weaning down the oxygen. Patient is willing to stay so Wednesday for hospice consultation. VS,Fishbone, I+O VS, Fishbone, I+O Laboratory Tests 08/15/16 05:38 Calcium Level 8.2 L, Red Blood Count 4.28, Mean Corpuscular Volume 95.0, Mean Corpuscular Hemoglobin 30.7, Mean Corpuscular Hemoglobin Concent 32.3, Red Cell Distribution Width 15.7 H, Neutrophils (%) (Auto) 89.6 H, Lymphocytes (%) (Auto ) 4.2 L, Monocytes (%) (Auto) 4.8, Eosinophils (%) (Auto) 0.6, Basophils (%) ( Auto) 0.2, Neutrophils # (Auto) 11.5 H, Lymphocytes # (Auto) 0.6 L, Monocytes # (Auto) 0.6, Eosinophils # (Auto) 0.1, Basophils # (Auto) 0.0 Vital Signs Date Time Temp Pulse Resp B/P Pulse Ox O2 Delivery O2 Flow Rate FiO2 08/15/16 08:20 93 152/80 08/15/16 06:00 98.6 18 94 High Flow Cannula 6.0 I&O- Last 24 Hours up to 6 AM 08/15/16 06:00 Intake Total 2220 ml Output Total 1950 ml Balance 270 ml HEATHER RODRIGES MD Aug 15, 2016 13:19
[2016-08-15 14:00] VITALS: BP 124/60
[2016-08-15 22:00] VITALS: BP 136/65
[2016-08-16] MEDS: FUROSEMIDE 40 MG/4 ML VIAL (J1940) IV SCH ×6 (00:08→20:34)
[2016-08-16] MEDS: IPRATROPIUM 0.5MG/ALBUTEROL 2.5MG INH SOL UD 3ML (DUONEB)(J7620) NEB SCH ×4 (01:12→20:00)
[2016-08-16] MEDS: SLF 3 ML SYR IV SCH ×3 (03:51→20:34)
[2016-08-16 06:00] VITALS: BP 152/84
[2016-08-16] MEDS: TIOTROPIUM INHALER/CAPSULE (SPIRIVA) INH SCH (07:55)
[2016-08-16] MEDS ORDERED: LEVEMIR (INSULIN DETEMIR) 1 UNITS/0.01ML SC SCH (09:00)
[2016-08-16] MEDS: HumaLOG INSULIN (NovoLOG) PER UNIT SC SCH ×4 (09:03→20:33)
[2016-08-16] MEDS: **hydrALAZINE HCL** 25 MG TAB PO SCH ×2 (09:04→20:33)
[2016-08-16] MEDS: METOPROLOL TARTRATE 100 MG TAB PO SCH ×2 (09:05→20:33)
[2016-08-16] MEDS: amLODIPine 10 MG TAB PO SCH (09:05)
[2016-08-16] MEDS: VALSARTAN 80 MG TAB (DIOVAN) PO SCH (09:06)
[2016-08-16] MEDS: POTASSIUM CHLORIDE 10 MEQ SR TABLET PO SCH ×2 (09:06→20:32)
[2016-08-16] MEDS: OMEPRAZOLE 20 MG CAP PO SCH (09:06)
[2016-08-16] MEDS: NICOTINE 7 MG/24 HR TRANSDERMAL TD SCH (09:07)
--- NOTE | 2016-08-16 11:45 | IPNPDOC ---
Text Note Date of Service The patient was seen on 08/16/16. NOTE Subjective: Denies any complaints. No chest pain/palpitations. Objective: Vitals: (see below) General: No acute distress, laying comfortably in bed. HEENT: Moist mucous membranes. Neck: No JVD or lymphadenopathy Cardiac: RRR, No murmurs Pulm: Diminished breath sounds bilateral lower lobes and right greater than left , improved from yesterday. Crackles right greater than left. B/l. No wheezing, rhonchi Abd: NT/ND + BS Ext: 1-2+ pitting edema bilateral lower extremities. No cyanosis Labs (see below) Images: Chest x-ray 08/12/16 IMPRESSION: 1. Right hilar mass, unchanged compared to the previous study. 2. Right lower lobe atelectasis or infiltrate. 3. Right pleural effusion, increased compared to the previous study. Assessment/Plan 1. Large right hilar mass- biopsy today. 11.6 x 9.7 x 9.4 cm invading the mediastinum. Likely malignant. We will follow-up with CT abdomen/pelvis to rule out metastases. Patient also has a fairly large right pleural effusion that appears to be loculated, for which Zosyn was started. Discussed with Dr. Walsh who recommends thoracentesis, ordered for IR. Pt had thoracentesis on 08/13/16. Dr. Walsh evaluated patient and since the patient has started to develop SVC syndrome, radiation treatment was offered and given the long burden , the patient opted for [facility]/hospice care. 2. Decompensated heart failure- symptoms improving. On Lasix 40 mg every 4 hours. Echocardiogram pending. Nonspecific ST changes on EKG. Cardiac enzymes negative. Aspirin held as the patient is going for a biopsy and thoracentesis. 3. Hypertension- controlled continue current meds 4. Tobacco abuse- counseled on cessation. Nicotine patch 5. Diabetes mellitus- metformin held. Continue insulin. 6. Hyperlipidemia- continue statin 7. Obesity DVT prophy: Heparin subcutaneous We'll continue to diurese patients for comfort, in the hopes of weaning down the oxygen. Patient is willing to stay until Wednesday for hospice consultation. VS,Fishbone, I+O VS, Fishbone, I+O Vital Signs Date Time Temp Pulse Resp B/P Pulse Ox O2 Delivery O2 Flow Rate FiO2 08/16/16 09:05 78 155/74 4/9/17 06:00 97.8 20 95 High Flow Cannula 6.0 I&O- Last 24 Hours up to 6 AM 08/16/16 05:59 Intake Total 1200 ml Output Total 2500 ml Balance -1300 ml HEATHER RODRIGES MD Aug 16, 2016 11:45
[2016-08-16 14:00] VITALS: BP 98/55
[2016-08-16 16:00] VITALS: BP 110/72
[2016-08-16 22:00] VITALS: BP 148/72
[2016-08-17] MEDS: FUROSEMIDE 40 MG/4 ML VIAL (J1940) IV SCH ×2 (00:05→04:50)
[2016-08-17] MEDS: IPRATROPIUM 0.5MG/ALBUTEROL 2.5MG INH SOL UD 3ML (DUONEB)(J7620) NEB SCH ×4 (01:46→19:49)
[2016-08-17] MEDS: SLF 3 ML SYR IV SCH ×3 (04:50→21:08)
[2016-08-17 06:00] VITALS: BP 158/90
[2016-08-17] MEDS: TIOTROPIUM INHALER/CAPSULE (SPIRIVA) INH SCH (07:48)
[2016-08-17 08:25] VITALS: BP 148/70
[2016-08-17] MEDS: METOPROLOL TARTRATE 100 MG TAB PO SCH ×2 (08:48→21:05)
[2016-08-17] MEDS: POTASSIUM CHLORIDE 10 MEQ SR TABLET PO SCH ×2 (08:48→21:05)
[2016-08-17] MEDS: FUROSEMIDE 40 MG TAB PO SCH (08:49)
[2016-08-17] MEDS: OMEPRAZOLE 20 MG CAP PO SCH (08:49)
[2016-08-17] MEDS: **hydrALAZINE HCL** 25 MG TAB PO SCH ×2 (08:49→21:06)
[2016-08-17] MEDS: VALSARTAN 80 MG TAB (DIOVAN) PO SCH (08:50)
[2016-08-17] MEDS: NICOTINE 7 MG/24 HR TRANSDERMAL TD SCH (08:51)
[2016-08-17] MEDS: amLODIPine 10 MG TAB PO SCH (08:51)
[2016-08-17] MEDS: LEVEMIR (INSULIN DETEMIR) 1 UNITS/0.01ML SC SCH (08:53)
[2016-08-17] MEDS: HumaLOG INSULIN (NovoLOG) PER UNIT SC SCH ×4 (08:53→21:05)
--- NOTE | 2016-08-17 11:49 | IPNPDOC ---
Text Note Date of Service The patient was seen on 08/17/16. NOTE Subjective: Denies any complaints. No chest pain/palpitations. Objective: Vitals: (see below) General: No acute distress, laying comfortably in bed. HEENT: Moist mucous membranes. Neck: No JVD or lymphadenopathy Cardiac: RRR, No murmurs Pulm: Diminished breath sounds bilateral lower lobes and right greater than left , improved from yesterday. Crackles right greater than left. B/l. No wheezing, rhonchi Abd: NT/ND + BS Ext: 1-2+ pitting edema bilateral lower extremities. No cyanosis Labs (see below) Images: Chest x-ray 08/12/16 IMPRESSION: 1. Right hilar mass, unchanged compared to the previous study. 2. Right lower lobe atelectasis or infiltrate. 3. Right pleural effusion, increased compared to the previous study. Assessment/Plan 1. Large right hilar mass- biopsy today. 11.6 x 9.7 x 9.4 cm invading the mediastinum. Likely malignant. We will follow-up with CT abdomen/pelvis to rule out metastases. Patient also has a fairly large right pleural effusion that appears to be loculated, for which Zosyn was started. Discussed with Dr. Walsh who recommends thoracentesis, ordered for IR. Pt had thoracentesis on 08/13/16. Dr. Walsh evaluated patient and since the patient has started to develop SVC syndrome, radiation treatment was offered and given the long burden , the patient opted for [facility]/hospice care. 2. Decompensated heart failure- symptoms improving. On Lasix 40 mg every 4 hours changed to PO. Echocardiogram pending. Nonspecific ST changes on EKG. Cardiac enzymes negative. Aspirin held as the patient is going for a biopsy and thoracentesis. 3. Hypertension- controlled continue current meds 4. Tobacco abuse- counseled on cessation. Nicotine patch 5. Diabetes mellitus- metformin held. Continue insulin. 6. Hyperlipidemia- continue statin 7. Obesity DVT prophy: Heparin subcutaneous We'll continue to diurese patients for comfort, in the hopes of weaning down the oxygen. Hospice consultation pending. VS,Fishbone, I+O VS, Fishbone, I+O Vital Signs Date Time Temp Pulse Resp B/P Pulse Ox O2 Delivery O2 Flow Rate FiO2 08/17/16 10:26 Nasal Cannula 6.0 08/17/16 08:51 89 148/70 08/17/16 08:25 98.3 20 95 I&O- Last 24 Hours up to 6 AM 08/17/16 06:00 Intake Total 1780 ml Output Total 2500 ml Balance -720 ml HEATHER RODRIGES MD Aug 17, 2016 11:49
[2016-08-17 22:00] VITALS: BP 152/75
[2016-08-18] MEDS: IPRATROPIUM 0.5MG/ALBUTEROL 2.5MG INH SOL UD 3ML (DUONEB)(J7620) NEB SCH ×2 (01:14→07:08)
[2016-08-18] MEDS: SLF 3 ML SYR IV SCH (05:48)
[2016-08-18 06:00] VITALS: BP 148/92
[2016-08-18] MEDS: TIOTROPIUM INHALER/CAPSULE (SPIRIVA) INH SCH (07:08)
[2016-08-18] MEDS: POTASSIUM CHLORIDE 10 MEQ SR TABLET PO SCH (08:45)
[2016-08-18] MEDS: HumaLOG INSULIN (NovoLOG) PER UNIT SC SCH (08:45)
[2016-08-18] MEDS: LEVEMIR (INSULIN DETEMIR) 1 UNITS/0.01ML SC SCH (08:45)
[2016-08-18 08:46] VITALS: BP 148/92
[2016-08-18] MEDS: VALSARTAN 80 MG TAB (DIOVAN) PO SCH (08:46)
[2016-08-18] MEDS: NICOTINE 7 MG/24 HR TRANSDERMAL TD SCH (08:46)
[2016-08-18] MEDS: **hydrALAZINE HCL** 25 MG TAB PO SCH (08:47)
[2016-08-18] MEDS: amLODIPine 10 MG TAB PO SCH (08:47)
[2016-08-18] MEDS: OMEPRAZOLE 20 MG CAP PO SCH (08:47)
[2016-08-18] MEDS: METOPROLOL TARTRATE 100 MG TAB PO SCH (08:47)
[2016-08-18] MEDS: FUROSEMIDE 40 MG TAB PO SCH (08:47)
[2016-08-18] MEDS ORDERED: LORA1TAB12 PO (09:56)
[2016-08-18] MEDS ORDERED: ATRO1OPD PO (09:56)
[2016-08-18] MEDS ORDERED: MORP1SOL PO (09:56)
--- NOTE | 2016-08-18 16:07 | DSES ---
DATE OF ADMISSION: 08/12/2016 DATE OF DISCHARGE: 08/18/2016 PRIMARY CARE PROVIDER: None. CONSULTANTS: Cardiothoracic surgeon, Dr. Hal Walsh. PROCEDURES: Ultrasound-guided thoracentesis. COMPLICATIONS: None. ADMISSION/DISCHARGE DIAGNOSES: 1. Large right hilar mass secondary to lung cancer, severe vena cava syndrome. 2. Decompensated heart failure. 3. Hypertension. 4. Tobacco abuse. 5. Diabetes. 6. Hyperlipidemia. 7. Obesity. HOSPITAL COURSE: The patient is a 61-year-old female who presented to [facility] on 08/12/2016 for two weeks of difficulty breathing. During the workup, patient was found to have a right upper lobe/hilar mass measuring 11.6 x 9.7 x 9.4 cm invading to the mediastinum with subcarinal nodes. Patient also had a malignant pleural effusion. Patient was determined to have a severe vena cava syndrome. The cardiothoracic surgeon, Dr. Hal Walsh, was consulted. Ultrasound-guided thoracentesis was performed on 08/13/2016. Later, the pathology came back positive for malignancy. Patient was also started on Lasix diuresis for comfort. 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 Patient is discharged on 08/18/2016 for home hospice care. DISCHARGE INSTRUCTIONS: Discharge home. Activity as tolerated. Diet as tolerated. DISCHARGE MEDICATIONS: - atropine 1-2 drops by mouth every two hours as needed for terminal secretion - lorazepam 0.5 mg by mouth every four hours as needed for anxiety and agitation - morphine sulfate 0.25 to 1 mL by mouth every two hours as needed for pain or dyspnea - Ventolin one puff inhalation every six hours as needed for shortness of breath - Flonase one spray per nostril daily as needed for allergies - Breo one puff inhalation daily DISCHARGE CONDITION: Poor. DISCHARGE TIME: Greater than 30 minutes.
== END 2016-08-18 10:57 | disposition home or self-care (01) | DRG 181 ==
LOC: M MS5PR 17:53 → M PCU 22:19 → M MSPAV 08-14 16:06
PROVIDERS: ADMIT General Practice; ATTEND Internal Medicine
PROC: 0W993ZZ Drainage of Right Pleural Cavity, Percutaneous Approach (ICD-10-PCS; principal; 2016-08-13)
DX: C34.11 Malignant neoplasm of upper lobe, right bronchus or lung (principal); J91.0 Malignant pleural effusion; I87.1 Compression of vein; I50.9 Heart failure, unspecified; I10 Essential (primary) hypertension; Z66 Do not resuscitate; R94.31 Abnormal electrocardiogram [ECG] [EKG]; E11.9 Type 2 diabetes mellitus without complications; E78.5 Hyperlipidemia, unspecified; E66.9 Obesity, unspecified; Z88.1 Allergy status to other antibiotic agents; Z88.8 Allergy status to other drugs, medicaments and biological substances; Z79.84 Long term (current) use of oral hypoglycemic drugs; Z80.3 Family history of malignant neoplasm of breast; Z80.41 Family history of malignant neoplasm of ovary; Z80.7 Family history of other malignant neoplasms of lymphoid, hematopoietic and related tissues